=== PATIENT | male | born 1980 | race Caucasian/White ===

== ENCOUNTER 2022-07-03 07:31 | Outpatient (CLI) | payer BC, SELFPAY ==
[2022-07-03 08:11] LABS: Basophils Percent Auto 0.4 % (0.2-1.2); Eosinophils Absolute Auto 0.3 K/mm3 (0-0.3); Eosinophils Percent Auto 3.4 % (0-4.4); Hematocrit 45.7 % (42.0-52.0); Immature Granulocyte Absolute 0.02 K/mm3 (0.00-0.031); Immature Granulocyte Percent A 0.3 % (0-0.5); Lymphocytes Absolute Auto 1.56 K/mm3 (0.9-3.2); Lymphocytes Percent Auto 19.7 % (18.3-44.2); Mean Corpuscular Hemoglobin 31.4 pg (26-34); Mean Corpuscular Volume 89.8 fl (80-100); Mean Platelet Volume 9.9 fl (7.4-10.4); Monocytes Absolute Auto 0.5 K/mm3 (0.1-0.6); Monocytes Percent Auto 6.6 % (2.6-8.5); Neutrophils Absolute Auto 5.5 K/mm3 (1.3-6.7); Neutrophils Percent Auto 69.6 % (45.5-73.1); Platelet Count Result 274 k/mm3 (150-375); Red Blood Count 5.09 M/mm3 (4.6-6.20); Red Cell Distribution Width 11.8 % (11.5-14.5); White Blood Count 7.9 K/mm3 (4.5-10.0)
[2022-07-03 08:13] LABS: Appearance Urine Clear (Clear); Bilirubin Urine Negative (Negative); Blood Urine Negative (Negative); Color Urine Yellow (Yellow); Glucose Urine UA Negative (Negative); Ketones Urine Trace mg/dL (Negative); Leukocyte Esterase Ur Negative LEU/UL (Negative); Nitrate Urine Negative (Negative); Protein Urine Negative (Negative); Specific Grav Ur 1.022 (1.001-1.035); Urobilinogen Urine 0.2 mg/dL (<2.0)
[2022-07-03 08:23] LABS: Add Urine Microscopic? NO
[2022-07-03 09:56] LABS: Alanine Aminotransferase 33 U/L (6-50); Albumin Level 4.5 g/dL (3.5-5.1); Alkaline Phosphatase 115 U/L (38-126); Anion Gap 7 mmol/L (8-16); Aspartate Amino Transferase 32 U/L (17-59); Bilirubin,Total 0.6 mg/dL (0.2-1.3); Blood Urea Nitrogen 13 mg/dL (9-20); Carbon Dioxide 31 mmol/L (22-30); Chloride 105 mmol/L (98-107); Cholesterol 163 mg/dL (0-200); Estimated Glomerular Filt Rate > 60; Glucose 84 mg/dL (65-110); HDL Direct 33 mg/dL; Potassium 3.8 mmol/L (3.4-5.0); Sodium 143 mmol/L (137-145); Triglycerides 183 mg/dL (<150)
[2022-07-03 11:15] LABS: LDL Cholesterol Direct 92 mg/dL
[2022-07-03 11:47] LABS: Hemoglobin A1C 4.4 % (<5.7)
[2022-07-08 13:50] LABS: Triiodothyronine T3 Free 3.1 pg/mL (2.3-4.2)
== END 2022-07-03 07:32 | disposition home or self-care (01) ==
LOC: ANHLAB 07:33
PROVIDERS: PCP Physician Assistant; Visit Provider Physician Assistant
DX: Z00.00 Encounter for general adult medical examination without abnormal findings (principal); Z13.220 Encounter for screening for lipoid disorders; Z13.1 Encounter for screening for diabetes mellitus; Z12.5 Encounter for screening for malignant neoplasm of prostate
CPT/HCPCS: 36415; 80053; 80061; 81003; 83036; 84153; 84443; 84481; 85025

== ENCOUNTER 2022-10-01 11:34 | Emergency (ER) | payer BC, SELFPAY ==
--- NOTE | ~2022-10-01 | XR_ITS ---
EXAMINATION: XR lumbar spine 2-3V DATE: 10/01/2022 12:42 INDICATION: Low back pain TECHNIQUE: Anteroposterior and lateral views of the lumbar spine, and cone-down lateral view of the l umbosacral junction were obtained. COMPARISON: None. FINDINGS: There is moderate loss of intervertebral disc space height at L5-S1. The vertebral body hei ghts are normal. There are 2 mm of retrolisthesis of L5 on S1. There is no fracture. Small degenerati ve osteophytes project from the anterior endplates of multiple vertebral bodies. IMPRESSION: 1. Mild to moderate lumbar spondylosis at L5-S1. Reviewed, dictated and finalized at location L.
[2022-10-01 11:59] VITALS: BP 147/104; PULSE 88; RESP 16; TEMP 36.6; O2SAT 98
--- NOTE | 2022-10-01 12:39 | ED.BACK ---
HPI - Back Pain/Injury General Chief Complaint: Back Pain/Injury Stated Complaint: lower back pain Time Seen by Provider: 10/01/22 12:22 Source: patient and RN notes reviewed Mode of arrival: ambulatory Limitations: no limitations History of Present Illness HPI Narrative: Patient presents today complaining of midline low back pain that was present when he woke up yesterday morning. Pain has worsened since that time. Denies radiation of the pain. Denies numbness or tingling in the extremities or genitalia. Denies loss of bowel or bladder control. He has applied ice and taking ibuprofen without much relief. Currently rates his pain 01/10. Denies history of chronic back pain or back surgeries. Denies recent heavy lifting or back injury. Related Data Allergies Allergy/AdvReac Type Severity Reaction Status Date / Time penicillin V Allergy Unknown Verified 05/05/13 09:46 Penicillins Allergy Unknown NONE-BROTHER Verified 04/27/18 08:17 HAS ALLERGY Review of Systems Review of Systems: CONSTITUTIONAL: Denies body aches, fever, chills, or sweats. EYES: Denies visual changes, redness, or discharge. ENT: Denies rhinorrhea, congestion, sore throat, or otalgia. CARDIOVASCULAR: Denies chest pain, palpitations, or edema. RESPIRATORY: Denies cough or dyspnea. GASTROINTESTINAL: Denies abdominal pain, nausea, vomiting, or diarrhea. GENITOURINARY: Denies dysuria or hematuria. SKIN: Denies rash, itching, or wounds. MUSCULOSKELETAL: Denies joint pain, or myalgia.+ low back pain NEUROLOGIC: Denies headache, numbness, tingling, or weakness. PSYCH: Denies depression or anxiety. PMFSH Social History Social History Smoking status: Never smoker Comments At time of signature, I have reviewed and agree with nursing past medical, surgical, social and family history unless otherwise noted. Please see nursing chart for further information. There is no relevant family history pertinent to the presenting complaint Exam Narrative: GENERAL: Well-appearing, well-nourished, and in no acute distress. HEAD: Normocephalic, atraumatic. EYES: EOMI. No redness or drainage. Conjunctivae normal. ENT: Mucous membranes pink and moist. NECK: Normal AROM. CHEST: No respiratory distress. MUSCULOSKELETAL: Tenderness to the midline lower lumbar spine. No tenderness to the bilateral lumbar paraspinal muscles. Distal sensation intact bilaterally. Saddle sensation intact. capillary refill. Posterior tibial pulses normal. Dorsiflexion and plantar flexion equal and strong against resistance. EXTREMITIES: Normal range of motion. No edema. SKIN: Warm, dry, no rash. Capillary refill normal. Normal skin turgor. NEURO: No focal deficits. Alert and oriented x3. Gait steady. PSYCH: Normal affect. No signs of depression or anxiety. Course Course Level of Care: Express Care Visit Vital Signs Vital signs: Vital Signs Temperature 97.8 F 10/01/22 11:59 Pulse Rate 88 10/01/22 11:59 Respiratory Rate 16 10/01/22 11:59 Blood Pressure 147/104 H 10/01/22 11:59 Pulse Oximetry 98 10/01/22 11:59 Temperature 97.8 F 10/01/22 11:59 Pulse Rate 88 10/01/22 11:59 Respiratory Rate 16 10/01/22 11:59 Blood Pressure 147/104 H 10/01/22 11:59 Pulse Oximetry 98 10/01/22 11:59 Reviewed. Pt has been instructed to follow up with his PCP regarding his elevated blood pressure today. MDM - Back Pain/Injury Differential Diagnosis Differential diagnosis: Likely lumbar radiculopathy, strain of lumbar region and other (Bulging disc) Critical Care Time Critical Care Time Critical Care Time: No Discharge Plan Discharge Clinical Impression: Low back pain Qualifiers: Chronicity: acute Back pain laterality: midline Sciatica presence: without sciatica Qualified Code(s): M54.50 - Low back pain, unspecified Patient Disposition: Home, Self-Care Condition: Stable Ins
== END 2022-10-01 13:05 | disposition home or self-care (01) ==
PROVIDERS: Emergency Provider Nurse Practitioner; PCP Physician Assistant
DX: M54.50 Low back pain, unspecified (principal)
CPT/HCPCS: 72100; 99213; G0463

== ENCOUNTER 2022-12-26 09:02 | Emergency (ER) | payer BC, SELFPAY ==
[2022-12-26 09:16] VITALS: BP 141/107; PULSE 110; RESP 16; TEMP 36.9; O2SAT 99
--- NOTE | 2022-12-26 09:18 | ED.EYEPROB ---
HPI - Eye Problem General Chief complaint: Eye Problems Stated complaint: EYE REDNESS/SWELLING Time Seen by Provider: 12/26/22 09:18 Source: patient Mode of arrival: ambulatory Limitations: no limitations History of Present Illness HPI Narrative: 42-year-old male presents with complaint of swelling around bilateral eyes. Noticed symptoms and he 1st woke up this morning. Denies itching or in pain. Reports some clear drainage from right eye. [place] and states continuously wiping his eyes, arms, face with a rag due to excessive sweating. Patient is concerned that he was touching his balls club and then constantly rubbing face and eyes and may allergic reaction related to fertilizer on cough course. No vision changes. Did not take any [id number] antihistamines prior to arrival. All systems reviewed and negative except as noted. Related Data Allergies Allergy/AdvReac Type Severity Reaction Status Date / Time penicillin V Allergy Unknown Other Verified 12/26/22 09:14 Penicillins Allergy Unknown NONE-BROTHER Verified 12/26/22 09:14 HAS ALLERGY Review of Systems Review of Systems: CONSTITUTIONAL: Denies fever, chills, or sweats. EYES: Denies visual changes, redness, or discharge. Reports clear drainage right eye with swelling eyes. ENT: Denies rhinorrhea, congestion, sore throat, or otalgia. CARDIOVASCULAR: Denies chest pain, palpitations, or edema. RESPIRATORY: Denies cough or dyspnea. GASTROINTESTINAL: Denies abdominal pain, nausea, vomiting, or diarrhea. GENITOURINARY: Denies dysuria or hematuria. SKIN: Denies rash or itching. MUSCULOSKELETAL: Denies back pain, joint pain, or myalgia. NEUROLOGIC: Denies headache, numbness, or weakness. PSYCHIATRIC: Denies anxiety or depression. All other systems reviewed are negative, except as documented in HPI. PMFSH Social History Social History Smoking status: Never smoker Comments At time of signature, agree with nursing past medical, surgical, social and family history. There is no relevant family history pertinent to the presenting complaint. Exam Narrative: GENERAL: This is a well-nourished, well-developed patient, in no apparent distress. HEAD: normocephalic, atraumatic. EYES: PERRL. Sclera clear/white. Vision is grossly intact. soft tissue swelling to bilateral eyes with mild conjunctivitis. no drainage noted. EARS: External ears normal NOSE: External nose normal NECK: Neck supple, non-tender without lymphadenopathy, masses or thyromegaly. CARDIOVASCULAR: Regular rate and rhythm without murmurs, gallops, or rubs. RESPIRATORY: Clear to auscultation. Breath sounds equal bilaterally. No wheezes, rales, or rhonchi. SKIN: warm, Dry, intact with no suspicious lesions or rash, good texture and turgor. NEURO: awake, alert, and oriented to person, place and time. There were no obvious focal neurologic abnormalities. EXTREMITIES: No joint tenderness, effusion, or edema noted. Course Course Level of Care: Express Care Visit Vital Signs Vital signs: Vital Signs Temperature 36.9 C 12/26/22 09:16 Pulse Rate 110 H 12/26/22 09:16 Respiratory Rate 16 12/26/22 09:16 Blood Pressure 141/107 H 12/26/22 09:16 Pulse Oximetry 99 12/26/22 09:16 Temperature 36.9 C 12/26/22 09:16 Pulse Rate 110 H 12/26/22 09:16 Respiratory Rate 16 12/26/22 09:16 Blood Pressure 141/107 H 12/26/22 09:16 Pulse Oximetry 99 12/26/22 09:16 Review MDM - Eye Problem MDM Narrative Medical decision making narrative: Patient is aware of diagnosis, understands and agrees to treatment plan. Anticipatory guidance given. Patient agrees to follow-up as directed and is aware of reasons to seek care at the emergency department. Portions of this record may have been created with voice recognition software pt's BP elevated today. recommend follow up with PCP in 1 wk. prescribe
== END 2022-12-26 09:44 | disposition home or self-care (01) ==
PROVIDERS: Emergency Provider Nurse Practitioner Family; PCP Physician Assistant
DX: T78.40XA Allergy, unspecified, initial encounter (principal); H10.33 Unspecified acute conjunctivitis, bilateral; R03.0 Elevated blood-pressure reading, without diagnosis of hypertension
CPT/HCPCS: 99213; G0463

== ENCOUNTER 2023-06-01 16:27 | Emergency (ER) | payer BC, SELFPAY ==
--- NOTE | 2023-06-01 16:34 | ED.HA ---
HPI - Headache General Chief Complaint: Headache Stated Complaint: Migraine Time Seen by Provider: 06/01/23 16:35 Source: patient and old records reviewed Mode of arrival: ambulatory Limitations: no limitations History of Present Illness HPI Narrative: Oswaldo is a 42-year-old male patient presenting to the clinic today with complaints of a left sided headache for the past week. He reports some nausea and neck stiffness as well. Pain is worse when he cough, sneezes, or bends forward. States that he contacted his PCP office and they instructed him to check his b/p- His b/p was 169/116. His PCP left the office so he was instructed to come to the the medical center. Rates his pain 05/12 currently. Related Data Allergies Allergy/AdvReac Type Severity Reaction Status Date / Time penicillin V Allergy Unknown Other Verified 06/01/23 16:33 Penicillins Allergy Unknown NONE-BROTHER Verified 06/01/23 16:33 HAS ALLERGY Review of Systems Review of Systems: Pertinent positives per HPI. Patient denies any fever, chills, rash, visual changes, dizziness, cough, shortness of breath, chest pain, palpitations, nausea, vomiting, diarrhea, constipation, abdominal pain, or any urinary issues. PMFSH Social History Social History Smoking status: Never smoker Comments At the time of my signature, I reviewed and agree with the nursing past medical, surgical, social, and family history. There is no relevant family history pertinent to the patient complaint. Exam Narrative: General: Well-developed, well nourished, in no apparent distress Head: Normocephalic, atraumatic Eyes: Pupils equally round and reactive to light bilaterally, EOM intact, sclera and conjunctive clear, no discharge, lids normal Ears: TMs intact and clear, ear canals clear, no drainage, grossly hearing normal. Nose: Nares patent, no discharge, no inflammation, no sinus tenderness. Mouth: Oropharynx without lesions or masses, good dentition, MMM. Tongue midline, even rise and fall of uvula Neck: Supple, trachea midline, no enlargement of anterior or posterior cervical nodes, no thyroid masses or goiter palpable. Cardio: Regular rate and rhythm, s1 and s2 normal, no murmur appreciated. Resp: Clear to auscultation bilaterally anteriorly and posteriorly, no rhonchi, rales, wheezing or rubs Musculoskeletal: No deformity, non-tender to palpation, grossly normal range of motion, muscle strength strong and equal, peripheral pulse strong, no edema, no cyanosis, normal gait and station Neuro: Alert and oriented x4 with normal speech, no focal deficits, cranial nerves I through XII intact, muscle strength 5 out of 5, sensation intact bilaterally, negative Romberg test Course Course Emergency Course: Portions of this record may have been created with voice recognition software. Level of Care: Express Care Visit Vital Signs Vital signs: Vital Signs Temperature 36.5 C 06/01/23 16:36 Pulse Rate 91 06/01/23 16:36 Respiratory Rate 16 06/01/23 16:36 Blood Pressure 144/106 H 06/01/23 16:36 Pulse Oximetry 100 06/01/23 16:36 Temperature 36.5 C 06/01/23 16:36 Pulse Rate 91 06/01/23 16:36 Respiratory Rate 16 06/01/23 16:36 Blood Pressure 144/106 H 06/01/23 16:36 Pulse Oximetry 100 06/01/23 16:36 Vital signs reviewed MDM - Headache MDM Narrative Medical decision making narrative: At the time of visit patient is resting comfortably on the exam table. Patient appears to be nontoxic. EKG: Shows normal sinus rhythm with heart rate of 84 beats per minute. No ST elevation or depression noted. No T-wave inversion noted. Plan: Patient has had previous readings of high blood pressure in the past while in the clinic. Blood pressure today was 144/106. Rates his headache a 1/10 but earlier today his blood pressure was 169/116 and was having an 8/10 headache. States that the headache is w
[2023-06-01 16:36] VITALS: BP 144/106; PULSE 91; RESP 16; TEMP 36.5; O2SAT 100
--- NOTE | 2023-06-01 16:52 | ECG_ITS ---
Measurements Intervals Kamuela Rate: 84 P: 51 MO: 149 QRS: 36 QRSD: 94 T: 18 QT: 344 QTc: 408 Interpretive Statements SINUS RHYTHM POSSIBLE LEFT ATRIAL ENLARGEMENT NONSPECIFIC T-WAVE ABNORMALITY- INFERIOR LEADS BORDERLINE ECG NO PREVIOUS ECG AVAILABLE FOR COMPARISON Electronically Signed On 06-01-2023 17:03:16 [employer] by Antione Cortes D.O.
== END 2023-06-01 17:16 | disposition home or self-care (01) ==
PROVIDERS: Emergency Provider Nurse Practitioner Family
DX: R51.9 Headache, unspecified (principal); I10 Essential (primary) hypertension
CPT/HCPCS: 93005; 99213; G0463

== ENCOUNTER 2023-07-09 09:36 | Outpatient (CLI) | payer BC, SELFPAY ==
[2023-07-09 13:09] LABS: Alanine Aminotransferase 34 U/L (6-50); Albumin Level 4.5 g/dL (3.5-5.1); Alkaline Phosphatase 108 U/L (38-126); Anion Gap 4 mmol/L (8-16); Aspartate Amino Transferase 66 U/L (17-59); Blood Urea Nitrogen 16 mg/dL (9-20); Calcium 9.7 mg/dL (8.4-10.2); Carbon Dioxide 32 mmol/L (22-30); Chloride 102 mmol/L (98-107); Cholesterol 174 mg/dL (0-200); Estimated Glomerular Filt Rate > 60; Glucose 90 mg/dL (65-110); HDL Direct 44 mg/dL; Potassium 4.4 mmol/L (3.4-5.0); Sodium 138 mmol/L (137-145); Triglycerides 98 mg/dL (<150)
[2023-07-09 13:30] LABS: LDL Cholesterol Direct 108 mg/dL
[2023-07-09 13:33] LABS: Prostate Specific Antigen 2.6 ng/mL (< OR = 4.0)
== END 2023-07-09 09:37 | disposition home or self-care (01) ==
LOC: ANHGOSHLAB 09:38
PROVIDERS: PCP Emergency Medicine; Visit Provider Emergency Medicine
DX: Z12.5 Encounter for screening for malignant neoplasm of prostate (principal); E78.1 Pure hyperglyceridemia; I10 Essential (primary) hypertension; Z80.42 Family history of malignant neoplasm of prostate
CPT/HCPCS: 36415; 80053; 80061; 84153; G0103

== ENCOUNTER 2024-12-07 09:57 | Outpatient (CLI) | payer BC, SELFPAY ==
--- OUTSIDE RECORDS SUMMARY | 2024-12-07 10:03 | XMS_ITS | Clinical Summary ---
Author Organization [facility] Address [address] [place] [id number] Care Team Providers Care Sign Out Clerk Name Role Phone Phillip Santos MD Primary Care Provider Unavailabl e Allergies No known active allergies Medications No known medications Active Problems No known active problems Immunizations Immunization Administration Dates Next Due Flucelvax 2 YRS+ (Multi-Dose Vial) 01/26/2019 Influenza Adult (Generic) 01/25/2020,02/04/2017, 02/01/2013 Family History Medical History Relation Comments Heart Disease Father Lung Cancer Paternal Grandfather Relation Status Comments Father Paternal Grandfather Social History Tobacco Use Types Packs/Day Years Used Date Smoking Tobacco: Never Smokeless Tobacco: Never Alcohol Use Standard Drinks/Week Comments Yes 0 (1 standard drink = 0.6 oz pur e alcohol) PHQ-2 Answer Date Recorded PHQ-2 Score - If the patient scores above 3, please move on to questions 3-9 1 04/29/2020 Sex and Gender Information Value Date Recorded Sex Assigned at Not on file Legal Sex Male 1:23 PM SILO FILLER Gender Identity Not on file Sexual Orientation Not on file Last Filed Vital Signs Vital Sign Reading Time Taken Comments Blood Pressure 122/74 04/29/2020 8:11 AM SILO FILLER Pulse 85 04/29/2020 8:11 AM SILO FILLER Temperature 36.7 C (98.1 F) 04/29/2020 8:11 AM SILO FILLER Respiratory Rate 18 04/29/2020 8:11 AM SILO FILLER Oxygen Saturation 97% 04/29/2020 8:11 AM SILO FILLER Inhaled Oxygen Concentration - - Weight 78.9 kg (174 lb) 04/29/2020 8:11 AM SILO FILLER Height 172.7 cm (5' 8) 04/29/2020 8:11 AM SILO FILLER Body Mass Index 26.46 04/29/2020 8:11 AM SILO FILLER Plan of Treatment Health Maintenance Due Date Last Done Comments Hepatitis C 2000 DTaP, Tdap and Td Vaccines ( 1 - Tdap) 2001 Hepatitis B Vaccines (1 of 3 - 19+ 3-dose series) 2001 HPV Vaccines (1 - 3-dose SCD M series) 2009 Annual Physical 04/29/2021 04/29/2020 COVID-19 Vaccine (1 - 2023-2 5 season) 2024 Meningococcal B Vaccine Aged Out No l onger eligible based on patient's age to complete this topic Meningococcal Vaccine Aged Out No kvng jyothi eligible based on patient's age to complete this topic Pneumococcal Vaccine: Pediat rics (0 to 5 Years) and At-Risk Patients (6 to 49 Years) Aged Out No longer eligi ble based on patient's age to complete this topic RSV Immunizations Under 20 Months Aged Out No longer eligible based on patient's age to complete this topic Insurance [facility] Care Teams Sign Out Clerk Relationship Specialty Start Date End Date Phillip Santos MD PCP - General FAMILY MEDICINE SPORTS MEDICINE 04/25/20
--- OUTSIDE RECORDS SUMMARY | 2024-12-07 10:03 | XMS_ITS | Clinical Summary ---
Author Organization [facility] Address [address] [place] [address] Phone Care Team Providers Care Senior Sales Representative Name Role Phone Unavailable Primary Care Provider Unavailabl e Active Problems No known active problems Social History Tobacco Use Types Packs/Day Years Used Date Smoking Tobacco: Never Assessed Sex and Gender Information Value Date Recorded Sex Assigned at Not on file Legal Sex Male 5:54 PM CDT Gender Identity Not on file Sexual Orientation Not on file Plan of Treatment Health Maintenance Due Date Last Done Comments Hepatitis C Virus (HCV) Screening 1982 TdaP Immunization 1982 Hepatitis B Immunization (1 of 3 - 19+ 3-dose series) 2001 Human Papillomavirus (HPV) Immunization (1 - 3-dose SCDM series) 2009 SARS-COV-2 Immunization ( season) 2024 02/27/2021, 07/08/2020 Influenza Immunization (#1) 2025 0910/2018, 02/04/2017, 01/30/2016, Additional history exists Respiratory Syncytial Virus (RSV) Immunization (Adult) (1 - 1-dose 75+ series) 2057 Meningococcal Immunization (ACWY) Aged Out No longer eligible based on patient's age to complete this topic Pneumococcal Immunization Combined Aged Out No longer eligible based on patient's age to complete this topic Rotavirus Immunization Aged Out No lo nger eligible based on patient's age to complete this topic
--- OUTSIDE RECORDS SUMMARY | 2024-12-07 10:03 | XMS_ITS | Clinical Summary ---
Author Organization [facility] Address [address] [place] [address] Care Team Providers Care Biomedical Manager Name Role Phone Jules iLu MD Primary Care Provider [phone] Source Comments [facility],non-owned Affiliates and Associated Physician Practices is amultiple site organization consisting of ambulatory clinics and hospital sitesin [place], [place], [place] and [place]. This disclosure is being madepursuant to the Care Everywhere program and may not contain all information available regarding this patient. Last updated 18.[employer] [facility] Allergies No known active allergies Medications * Be aware that medications may not be up to date on this document. Alwaysverify current medications with the patient. albuterol HFA (VENTOLIN HFA) 108 (90 BASE) MCG/ACT inhalerIndicatio ns:Acute bronchitis, unspecified organism Inhale 2 Puffs by mouth every 6 hours as needed for Wheezing or Cough 1 Inhaler 7 Active fluticasone propionate (FLONASE) 50 MCG/ACT nasal sprayIndications :Nasal Signs and Symptoms [place] 2 Sprays into each nostril once daily Reasons: Signs and Symptoms of Nose Diseases 1 Bottle 7 Active Active Problems No known active problems Social History Tobacco Use Types Packs/Day Years Used Date Smoking Tobacco: Never Sex and Gender Information Value Date Recorded Sex Assigned at Not on file Legal Sex Male 5:40 AM BAR GAUGER AND LUBRICATOR TENDER Gender Identity Not on file Sexual Orientation Not on file Last Filed Vital Signs Vital Sign Reading Time Taken Comments Blood Pressure 124/72 06/09/2016 8:02 AM BAR GAUGER AND LUBRICATOR TENDER Pulse 102 06/09/2016 8:02 AM BAR GAUGER AND LUBRICATOR TENDER Temperature 38.2 C (100.7 F) 06/09/2016 8:02 AM BAR GAUGER AND LUBRICATOR TENDER Respiratory Rate 17 06/09/2016 8:02 AM BAR GAUGER AND LUBRICATOR TENDER Oxygen Saturation - - Inhaled Oxygen Concentration - - Weight 70.3 kg (155 lb) 06/09/2016 8:02 AM BAR GAUGER AND LUBRICATOR TENDER Height 172.7 cm (5' 8) 06/09/2016 8:02 AM BAR GAUGER AND LUBRICATOR TENDER Body Mass Index 23.57 06/09/2016 8:02 AM BAR GAUGER AND LUBRICATOR TENDER Plan of Treatment Health Maintenance Due Date Last Done Comments HIV SCREENING 1997 HEPATITIS C SCREENING 09/07/2000 DTAP/TDAP/TD VACCINES (1 - Tdap) 2001 HEPATITIS B VACCINE (1 of 3 - 19+ 3-dose series) 2001 HPV VACCINE (1 - 3-dose SCDM series) 2009 LIPID TESTING 08/01/2020 08/02/2015, 06/04, 05/23/2015, Additional history exists COVID-19 VACCINE (2023- season) 2024 DEPRESSION SCREENING 05/03/2024 INFLUENZA VACCINE (#1) 2025 ZOSTER VACCINE (1 of 2) 2032 HIB VACCINE Aged Out No longer eligi ble based on patient's age to complete this topic MENINGOCOCCAL (Group B) VACCINE SHARED DECISION-MAKING Aged Out No longer eligible based on patient's age to complete this topic MENINGOCOCCAL GROUPS A/C/Y/W VACCINE Aged Out No longer eligible based on patient's age to complete this topic PNEUMOCOCCAL VACCINE Aged Out No long er eligible based on patient's age to complete this topic Procedures Procedure Name Priority Date/Time Associated Diagnosis Comments LIPID PROFILE Routine 08/02/2015 10:10 AM CDT from Last 3 Months or Most Recently Relevant to Health Maintenance Results * (ABNORMAL) LIPID PROFILE (08/02/2015 10:10 AM CDT) Cholesterol Total 202(H) 100 - 199 mg/dL [facility] ([facility]) Triglycerides 150(H) 0 - 149 mg/dL [facility] ([facility]) HDL 32(L) >39 mg/dL [facility] ([facility]) Comment: According to ATP-III Guidelines, HDL-C >59 mg/dL is considered a negative risk factor for CHD. VLDL Calculated 30 5 - 40 mg/dL [facility] ([facility]) LDL Calculated 140(H) 0 - 99 mg/dL [facility] ([facility]) Blood specimen (specimen) BLOOD SPECIMEN / Unknown 08/02/2015 10:10 AM CDT 08/02/2015 12:33 PM CDT Narrative [facility] ([facility]) - 08/03/2015 6:14 AM CDT Performed at: 01 - [facility] [address] [place], [place] [id number] Shot Bagger: Sigifredo Singleton PhD, Phone: [phone] [facility] Disha Overton MD LAB - CHEMISTRY ORDERABLES Fi nal Result [facility] ([facility]) [address] [place] [address] from Last 3 Months or Most Recently Relevant to Health [place] [address] [place] [address] Care Teams Biomedical Manager Relationship Specialty Start Date End Date Jules Liu MD [address] [place] [id number] PCP - General Family Medicine 03/10/16
--- OUTSIDE RECORDS SUMMARY | 2024-12-07 10:03 | XMS_ITS | Continuity of Care Document ---
Author Organization [facility] Address [address] [place] [address] Phone Care Team Providers Care Tire Beader Maker Name Role Phone Louie OD OD, Abel Unavailable Unavailabl e Procedures Procedure Date Refractive Evaluation Office/outpatient Visit, Est Eye Exam Established Pt Contact Lens Check Contact Lens Hydrophilic, Spherical Sales Tax Eye Exam & Treatment Refraction Eye Exam & Treatment Refraction CL Replacement - Vistakon Disp W/BW Soft Tax - Medical Advance Directives Directive Yes / No Effective Date File Name No Information Encounters Encounter Description Practice Location Reason(s) For Visit Diagnoses Date Provider Providers Copied on Encounter [facility], [address] [place] [address] [address], [place], [place], [id number], [place] tel:[phone] [facility] No Information Jul-2 2-201 2 Louie OD Abel. [address] [place], [place], [id number], [place]. tel:[phone] Referring Provider: Abel Palma OD P, [address] [place], [address] . tel:[phone] Office/outpat ient Visit, Est [facility], [address] [place] [address] [address], [place], [place], [id number], [place] tel:[phone] [facility] No Information Oct-0 2-201 0 Kilgore OD Chalino. [address] [place], [place] [address]ate Center , [address], [place], [place], [facility], . tel:[phone] [facility], [address] [place] [address] [address], [place], [place], [id number], tel:[phone] [facility] No Information 8-201 0 Kilgore OD Chalino. [address] [place], [place] [address]ate [address] , [address], [place], [place], [facility], [place]. tel:[phone] [facility], [address] [place] [address] [address], [place], [place], [id number], tel:[phone] [facility] [place] No Information 2 0-201 0 Kilgore OD Chalino. [address] [place] [address] [address], [place], [place], [facility], [place]. tel:[phone] [facility], [address] [place] [address] [address], [place], [place], [id number], tel:[phone] [facility] [place] No Information 2-201 0 Kilgore OD Chalino. [address] [place], [place] [address]ate Avani Mcdaniels, [address], [place], [facility], . tel:[phone] [facility], [address] [place] [address] [address], [place], [place], [id number], [place] tel:[phone] [facility] [place] No Information 8-200 7 Kilgore OD Chalino. [address] [place], [place] [address] [place] , [address], [place], [place], [facility], . tel:[phone] Family History Family Member Type Diagnosis Age At Onset No Information Payers Payer name Insurance type Covered constitution party ID Authoriza tion(s) No Information Social History Type Description Quantity Date Captured Comments Sex Male Smoking Status No Information Chief Complaint And Reason For Visit No Information Reason For Referral Reason For Referral No Information History Of Present Illness Encounter Date Complaint History Of Prese nt Illness No Information Functional Status Date Functional Assessmen t No Information Instructions Date Instruction Additional Infor mation No Information Assessments Type Assessment Date No Information Patient Care Teams Name Effective Dates (start - stop) Status Members No Information
[2024-12-07 13:13] LABS: Alanine Aminotransferase 34 U/L (6-50); Albumin Level 4.5 g/dL (3.5-5.1); Alkaline Phosphatase 93 U/L (38-126); Anion Gap 9 mmol/L (4-12); Aspartate Amino Transferase 49 U/L (17-59); Bilirubin,Total 0.7 mg/dL (0.2-1.3); Blood Urea Nitrogen 10 mg/dL (9-20); Calcium 9.5 mg/dL (8.4-10.2); Carbon Dioxide 28 mmol/L (22-30); Chloride 102 mmol/L (98-107); Estimated Glomerular Filt Rate > 60; Glucose 90 mg/dL (65-110); Potassium 4.1 mmol/L (3.4-5.0); Sodium 139 mmol/L (137-145); Total Protein 7.4 g/dL (6.3-8.2)
== END 2024-12-07 09:58 | disposition home or self-care (01) ==
LOC: ANHGOSHLAB 09:58
PROVIDERS: PCP Family Medicine; Visit Provider Family Medicine
DX: R74.8 Abnormal levels of other serum enzymes (principal)
CPT/HCPCS: 36415; 80053